=== PATIENT | female | born 1960 | race African-American/Black ===

== ENCOUNTER 2017-09-22 18:44 | Emergency (ER) | payer BC, OTHER | END 2017-09-22 20:39 | disposition home or self-care (01) | LOC: JERFT 18:44 | PROC: 3E0233Z Introduction of Anti-inflammatory into Muscle, Percutaneous Approach (ICD-10-PCS; principal; 2017-09-22) | CPT/HCPCS: 99281-25 ==

== ENCOUNTER 2018-08-07 10:37 | Emergency (ER) | payer OTHER ==
[2018-08-07 11:00] VITALS: BP 99/61; PULSE 78; TEMP 98.2; BMI 23.0
[2018-08-07] MEDS ORDERED: KETOROLAC TROMETHAMINE 60 MG/2 ML VIAL IM ONE (12:32)
[2018-08-07] MEDS ORDERED: METHOCARBAMOL 500 MG TABLET PO ONE (12:32)
--- NOTE | 2018-08-07 12:32 | PDOC ---
History of Present Illness - General Chief Complaint: Pain, Acute Stated Complaint: RT LEG PAIN Time Seen by Provider: 08/07/18 11:46 History Source: Patient Exam Limitations: No Limitations - History of Present Illness Initial Comments: 08/07/18 12:26 HISTORY OF PRESENT ILLNESS: This a 58-year-old woman denies medical history presents emergency Department for evaluation of right thigh pain starting in the evening while at rest. Patient reports increased pain with ambulation, extension of the knee and trying to raise leg while supine. Patient reports the pain started the right anterior thigh just below the hip. Patient reports the pain is 10/10 and describes as a pulling sensation. Patient denies any saddle anesthesia or loss of sensation distal to pain. Patient reports she has taken Tylenol which has had minimal relief with the pain. No recent travel or sick contacts. PAST MEDICAL HISTORY: Denies past medical history SURGICAL HISTORY: Denies ALLERGIES: No known drug allergies REVIEW OF SYSTEMS General/Constitutional: Denies fever or chills. Denies weakness, weight change. HEENT: Denies change in vision. Denies ear pain or discharge. Denies sore throat. Cardiovascular: Denies chest pain or shortness of breath. Respiratory: Denies cough, wheezing, or hemoptysis. Gastrointestinal: Denies nausea, vomiting, diarrhea or constipation. Denies rectal bleeding. Genitourinary: Denies dysuria, frequency, or change in urination. Musculoskeletal: see hpi Skin and breasts: Denies rash or easy bruising. Neurologic: Denies headache, vertigo, loss of consciousness, or loss of sensation. Psychiatric: Denies depression or anxiety. Endocrine: Denies increased thirst. Denies abnormal weight change. Hematologic/Lymphatic: Denies anemia, easy bleeding, or history of blood clots. Allergic/Immunologic: Denies hives or skin allergy. Denies latex allergy. PHYSICAL EXAM General Appearance: Well-appearing, appropriately dressed. No apparent distress , no intoxication. HEENT: EOMI, PERRLA, normal ENT inspection, normal voice, TMs normal, pharynx normal. No conjunctival pallor. No photophobia, scleral icterus. Neck: Supple. Trachea midline. No tenderness, rigidity, carotid bruit, stridor , lymphadenopathy, or thyromegaly. Respiratory/Chest: Lungs CTAB. No shortness of breath, chest tenderness, respiratory distress, accessory muscle use. No crackles, rales, rhonchi, stridor , wheezing, dullness Cardiovascular: RRR. S1, S2. No JVD, murmur, bradycardia, tachycardia. Vascular Pulses: Dorsalis-Pedis (R): 2+, Dorsalis-Pedis (L): 2+ Gastrointestinal/Abdominal: Normal bowel sounds. Abdomen soft, non-distended. No tenderness or rebound tenderness. No organomegaly, pulsatile mass, guarding, hernia, hepatomegaly, splenomegaly. Lymphatic: No adenopathy, tenderness. Musculoskeletal/Extremities: Normal inspection. FROM of all extremities, normal capillary refill. Pelvis Stable. No CVA tenderness. No tenderness to extremities, pedal edema, swelling, erythema or deformity. Palpable muscle spasm over the rectus femoris muscle of the right leg approximately 6 cm distal to the insertion point at the hip. Integumentary: Appropriate color, dry, warm. No cyanosis, erythema, jaundice or rash Neurologic: engineering team supervisor II-XII intact. Fully oriented, alert. Appropriate mood/affect. Motor strength 5/5. No appreciable EOM palsy, facial droop or sensory deficit. Past History - Past Medical History Allergies/Adverse Reactions: Allergies Allergy/AdvReac Type Severity Reaction Status Date / Time No Known Allergies Allergy Verified 08/07/18 11:00 Home Medications: Ambulatory Orders Latanoprost 0.005% Eye Drops [Xalatan 0.005% Eye Drops -] 1 drop OU DAILY Diazepam [Valium] 5 mg PO Q6H #4 tablet MDD 4 08/07/18 Methocarbamol [Robaxin -] 1,000 mg PO TID #22 tablet 08/07/18 Cardiac Disorders: Yes (heart murmur) CVA: No COPD: No DVT: No Diabetes: Yes (borderline diabetes) GI Disorders: Yes (GERD) - Surgical History Orthopedic Surgery: Yes (right ankle) - Immunization History Immunization Up to Date: Yes - Suicide/Smoking/Psychosocial Hx Smoking Status: No Smoking History: Never smoked Have you smoked in the past 12 months: No Number of Cigarettes Smoked Daily: 0 If you are a former smoker, when did you quit?: 2005 Information on smoking cessation initiated: No Hx Alcohol Use: No Drug/Substance Use Hx: No Substance Use Type: None *Physical Exam - Vital Signs Last Vital Signs Temp Pulse Resp BP Pulse Ox 98.2 F 78 17 99/61 99 08/07/18 10:55 08/07/18 10:55 08/07/18 10:55 08/07/18 10:55 08/07/18 10:55 Moderate Sedation - Procedure Monitoring Vital Signs: Procedure Monitoring Vital Signs Temperature 98.2 F 08/07/18 10:55 Pulse Rate 78 08/07/18 10:55 Respiratory Rate 17 08/07/18 10:55 Blood Pressure 99/61 08/07/18 10:55 O2 Sat by Pulse Oximetry (%) 99 08/07/18 10:55 Medical Decision Making - Medical Decision Making 08/07/18 12:31 A/P: 58-year-old woman with muscle spasm of the right rectus femoris muscle Toradol 60 mg IM now Robaxin 1500 mg orally now Will hold off on Valium this patient is driving home today. Reassess 08/07/18 13:16 Patient with mild relief after receiving Toradol and Robaxin. I'll discharge the patient home with prescription for Valium to take when she arrives. Patient was instructed on nonpharmacological methods of relieving muscle spasms. Patient is verbalizes understanding of discharge instructions. *DC/Admit/Observation/Transfer Diagnosis at time of Disposition: Muscle spasm of right leg - Discharge Dispostion Disposition: HOME Condition at time of disposition: Stable Decision to Admit order: No - Prescriptions Prescriptions: Diazepam [Valium] 5 mg PO Q6H #4 tablet MDD 4 Methocarbamol [Robaxin -] 1,000 mg PO TID #22 tablet - Referrals - Patient Instructions Additional Instructions: Rest, no heavy lifting or exercise until pain is resolved Hot soaks to affected area as often as possible/hot showers or Jacuzzis No massage or therapy until spasm is gone Continue ibuprofen 2-200 mg tablets every 6 hours for the next 3 days then as needed for pain and swelling Robaxin 1500mg every 8 hours as needed for spasm If not significant improvement within 24 hours with medication and rest regime, followup with private physician for change in medications and /or therapy. - Post Discharge Activity Forms/Work/School Notes: Back to Work
[2018-08-07] MEDS ORDERED: METHOCARBAMOL 500 MG TABLET ONE (12:33)
[2018-08-07] MEDS ORDERED: KETOROLAC TROMETHAMINE 60 MG/2 ML VIAL ONE (12:33)
== END 2018-08-07 13:27 | disposition home or self-care (01) ==
LOC: JERFT 10:37
PROC: 3E0233Z Introduction of Anti-inflammatory into Muscle, Percutaneous Approach (ICD-10-PCS; principal; 2018-08-07)
DX: M62.838 Other muscle spasm (principal)
CPT/HCPCS: 99281-25

== ENCOUNTER 2018-08-15 21:48 | Observation (INO) | payer OTHER ==
--- NOTE | 2018-08-15 22:45 | PDOC ---
History of Present Illness - General Chief Complaint: Nausea/Vomiting Stated Complaint: VOMITING History Source: Patient Exam Limitations: No Limitations - History of Present Illness Initial Comments: 08/15/18 22:44 58 yo F with a hx of GERD presents to the emergency department with N/V with sudden onset of abdominal pain today at 7:30 pm with 3x episodes of emesis (NBNB ). Per the patient, she started having sudden chills with fever and acute onset of RLQ abdominal pain that radiates to the LLQ and bilateral lower back. Per the patient, she states the pain is 8/10 (initially 10/10), sharp, without dysuria and diarrhea. She denies hematuria and hematochezia. Prior to the onset of the abdominal pain, she became SOB and currently has SOB. Denies fevers, chills, visual changes, lightheadedness, chest pain. Past History - Past Medical History Allergies/Adverse Reactions: Allergies Allergy/AdvReac Type Severity Reaction Status Date / Time No Known Allergies Allergy Verified 08/22/18 09:57 Home Medications: Ambulatory Orders Amoxicillin/Potassium Clav [Augmentin 500-125 Tablet] 1 each PO Q12H #9 tablet 08/22/18 Phenazopyridine HCl [Pyridium -] 100 mg PO BID #6 tablet 08/22/18 Cardiac Disorders: Yes (heart murmur) CVA: No COPD: No DVT: No Diabetes: Yes (borderline diabetes) GI Disorders: Yes (GERD) - Surgical History Orthopedic Surgery: Yes (right ankle) - Immunization History Immunization Up to Date: Yes - Suicide/Smoking/Psychosocial Hx Smoking Status: No Smoking History: Never smoked Have you smoked in the past 12 months: No Number of Cigarettes Smoked Daily: 0 If you are a former smoker, when did you quit?: 2005 Hx Alcohol Use: No Drug/Substance Use Hx: No Substance Use Type: None Review of Systems - Review of Systems Able to Perform ROS?: Yes Is the patient limited Khmer proficient: No Constitutional: No: Chills, Diaphoresis, Fever, Night Sweats, Weakness HEENTM: No: Eye Pain, Recent change in vision, Ear Pain, Nose Pain, Throat Pain , Mouth Pain Respiratory: Yes: Shortness of Breath. No: Cough, Hemoptysis Cardiac (ROS): No: Chest Pain, Lightheadedness, Palpitations ABD/GI: Yes: Nausea, Vomiting. No: Constipated, Diarrhea, Rectal Bleeding, Tarry Stools : No: Burning, Dysuria, Hematuria, Urgency Musculoskeletal: Yes: Back Pain. No: Joint Pain, Neck Pain Integumentary: No: Bruising, Erythema, Rash Neurological: No: Headache, Numbness, Tingling, Dizziness Psychiatric: No: Change in Appetite Endocrine: No: Unexplained Weight Gain *Physical Exam - Vital Signs Last Vital Signs Temp Pulse Resp BP Pulse Ox 99.1 F 120 H 20 92/54 L 97 08/15/18 22:01 08/15/18 22:01 08/15/18 22:01 08/15/18 22:01 08/15/18 22:01 - Physical Exam General Appearance: Yes: Nourished, Appropriately Dressed. No: Apparent Distress, Intoxicated HEENT: positive: EOMI, FOSTER, Normal Voice, Symmetrical, Pharynx Normal, Hearing Grossly Normal. negative: Pale Conjunctivae, Scleral Icterus (R), Scleral Icterus (L), Muffled/Hoarse voice, Pharyngeal Erythema, Tonsillar Exudate, Tonsillar Erythema, Nasal Congestion, Rhinorrhea, Excessive drooling Neck: positive: Trachea midline, Supple. negative: Tender, Lymphadenopathy (R) , Lymphadenopathy (L), Tender lateral, Tender midline Respiratory/Chest: positive: Lungs Clear, Normal Breath Sounds. negative: Chest Tender, Respiratory Distress, Accessory Muscle Use, Crackles, Rales, Rhonchi, Stridor Cardiovascular: positive: Regular Rhythm, S1, S2, Tachycardia. negative: Systolic Murmur Gastrointestinal/Abdominal: positive: Normal Bowel Sounds, Tender (RLQ), Flat, Soft. negative: Distended, Guarding, Rebound Lymphatic: negative: Adenopathy Musculoskeletal: positive: Normal Inspection. negative: CVA Tenderness, Vertebral Tenderness Extremity: positive: Normal Capillary Refill, Normal Inspection, Normal Range of Motion. negative: Tender, Swelling, Calf Tenderness Integumentary: positive: Normal Color, Dry, Warm. negative: Diaphoresis, Swelling, Ecchymosis Neurologic: positive: it business analyst II-XII NML intact, Fully Oriented, Alert, Normal Mood/ Affect, Normal Response, Motor Strength 5/5. negative: EOM Palsy, Facial Droop , Sensory Deficit Moderate Sedation - Procedure Monitoring Vital Signs: Procedure Monitoring Vital Signs Temperature 99.1 F 08/15/18 22:01 Pulse Rate 120 H 08/15/18 22:01 Respiratory Rate 20 08/15/18 22:01 Blood Pressure 92/54 L 08/15/18 22:01 O2 Sat by Pulse Oximetry (%) 97 08/15/18 22:01 Heart Score/ECG Review - ECG Intrepretation Comment:: ventricular rate: 120 bpm, WV is 192 ms, QRS is 68 ms, QTc is 407 ms. Sinus tach without ST elevation or depressions. ED Treatment Course - LABORATORY CBC & Chemistry Diagram: 08/17/18 06:00 08/17/18 06:00 Medical Decision Making - Medical Decision Making 58 yo F with a hx of GERD presents to the emergency department with N/V with sudden onset of abdominal pain today at 7:30 pm with 3x episodes of emesis (NBNB ). Initial vitals: Initial Vital Signs Temp Pulse Resp BP Pulse Ox 99.1 F 120 H 20 92/54 L 97 08/15/18 22:01 08/15/18 22:01 08/15/18 22:01 08/15/18 22:01 08/15/18 22:01 Work up: ddx: UTI vs appendicitis vs SBO vs volvulus vs colitits vs nephrolithiasis Laboratory Tests 08/15/18 08/16/18 08/16/18 23:45 00:05 00:05 WBC 14.3 H RBC 4.11 Hgb 13.0 Hct 36.3 MCV 88.4 MCH 31.6 MCHC 35.7 RDW 13.5 Plt Count 290 MPV 7.5 Absolute Neuts (auto) 12.4 H Neutrophils % 86.6 H D Lymphocytes % 6.9 L D Monocytes % 6.1 Eosinophils % 0.1 D Basophils % 0.3 Nucleated RBC % 0 Sodium 136 Potassium 3.7 Chloride 102 Carbon Dioxide 29 Anion Gap 5 L BUN 18 Creatinine 0.8 Creat Clearance w eGFR 74.20 Random Glucose 106 Lactic Acid Calcium 9.3 Total Bilirubin 0.6 AST 22 ALT 28 Alkaline Phosphatase 120 H Creatine Kinase 139 Troponin I < 0.02 Total Protein 8.3 H Albumin 3.8 Urine Color Yellow Urine Appearance Clear Urine pH 7.5 D Ur Specific [place] 1.017 Urine Protein Negative Urine Glucose (UA) Negative Urine Ketones 1+ H Urine Blood Negative Urine Nitrite Negative Urine Bilirubin Negative Urine Urobilinogen 0.2 Ur Leukocyte Esterase 1+ Urine WBC (Auto) 14 Urine RBC (Auto) 2 Urine Casts (Auto) 2 U Epithel Cells (Auto) 1.9 Urine Bacteria (Auto) 10.836 Influenza A (Rapid) Influenza B (Rapid) 08/16/18 08/16/18 00:05 00:05 WBC RBC Hgb Hct MCV MCH MCHC RDW Plt Count MPV Absolute Neuts (auto) Neutrophils % Lymphocytes % Monocytes % Eosinophils % Basophils % Nucleated RBC % Sodium Potassium Chloride Carbon Dioxide Anion Gap BUN Creatinine Creat Clearance w eGFR Random Glucose Lactic Acid 1.2 Calcium Total Bilirubin AST ALT Alkaline Phosphatase Creatine Kinase Troponin I Total Protein Albumin Urine Color Urine Appearance Urine pH Ur Specific [place] Urine Protein Urine Glucose (UA) Urine Ketones Urine Blood Urine Nitrite Urine Bilirubin Urine Urobilinogen Ur Leukocyte Esterase Urine WBC (Auto) Urine RBC (Auto) Urine Casts (Auto) U Epithel Cells (Auto) Urine Bacteria (Auto) Influenza A (Rapid) Negative Influenza B (Rapid) Negative WBC 14.3, 1+ leuk est with 14 WBC CXR shows no acute intrathoracic pathologies CT abdomen and pelvis shows uterine fibroids, but no acute findings Interventions: zosyn, 2 L of NS, and IV tylenol. the patient had persistence of tachycardia. Patient was accepted for admission for suspected sepsis secondary to UTI. Dispo: Admit *DC/Admit/Observation/Transfer Diagnosis at time of Disposition: UTI (urinary tract infection) Qualifiers: Urinary tract infection type: acute cystitis Hematuria presence: without hematuria Qualified Code(s): N30.00 - Acute cystitis without hematuria - Referrals - Patient Instructions - Post Discharge Activity
[2018-08-15] MEDS ORDERED: SODIUM CHLORIDE 1,973 ML IV ONE (23:22)
[2018-08-15] MEDS ORDERED: ACETAMINOPHEN 1000 MG/100 ML VIAL (NON FORMULARY) IVPB ONE (23:22)
[2018-08-15] MEDS ORDERED: ACETAMINOPHEN INJECTION 100 ML IVPB ONE (23:31)
[2018-08-15 23:55] LABS: EPI CELLS 1.9 /HPF (0-5); HYALINE CASTS 2 /hpf (0-8); PH,URINE 7.5 (5.0-8.0); URINE APPEARANCE CLEAR; URINE BACTERIA 10.836 /hpf (NEGATIVE); URINE BILIRUBIN NEGATIVE (<2.0 mg/dL); URINE COLOR YELLOW; URINE GLUCOSE (UA) NEGATIVE (NEGATIVE); URINE KETONE 1+ (NEGATIVE); URINE LEUK ESTERASE 1+ (NEGATIVE); URINE NITRITE NEGATIVE (NEGATIVE); URINE PROTEIN NEGATIVE (NEGATIVE); URINE RBC 2 /hpf (0-4); URINE UROBILINOGEN 0.2 mg/dL (0.2-1.0); URINE WBC 14 /hpf (0-5)
[2018-08-16 00:16] LABS: BASO % 0.3 % (0-2.0); EOS % 0.1 % (0-4.5); HEMATOCRIT 36.3 % (32.4-45.2); LYMPH % 6.9 % (8-40); MCH 31.6 pg (25.7-33.7); MCHC 35.7 g/dl (32.0-36.0); MEAN CELL VOLUME 88.4 fl (80-96); MEAN PLT VOLUME 7.5 fl (7.5-11.1); MONO % 6.1 % (3.8-10.2); NEUT % 86.6 % (42.8-82.8); PLATELET COUNT 290 K/MM3 (134-434); RBC 4.11 M/mm3 (3.60-5.2); RDW 13.5 % (11.6-15.6); WHITE BLOOD COUNT 14.3 K/mm3 (4.0-10.0)
[2018-08-16 00:45] LABS: ALBUMIN 3.8 g/dl (3.4-5.0); ALK PHOS 120 U/L (45-117); ANION GAP 5 MMOL/L (8-16); BILIRUBIN,TOTAL 0.6 mg/dL (0.2-1); BLOOD UREA NITROGEN 18 mg/dL (7-18); CALCIUM 9.3 mg/dL (8.5-10.1); CHLORIDE 102 mmol/L (98-107); CO2 29 mmol/L (21-32); CREATININE 0.8 mg/dL (0.55-1.3); GLUCOSE,RANDOM 106 mg/dL (74-106); POTASSIUM 3.7 mmol/L (3.5-5.1); SGOT/AST 22 U/L (15-37); SGPT/ALT 28 U/L (13-61); SODIUM 136 mmol/L (136-145); TOT PROT 8.3 g/dl (6.4-8.2)
[2018-08-16] MEDS ORDERED: SODIUM CHLORIDE 1,000 ML IV STA ×2 (03:18→09:16)
--- NOTE | 2018-08-16 03:25 | PDOC ---
Attending Attestation - Resident Resident Name: Henrik Stoner - ED Attending Attestation I have performed the following: I have examined & evaluated the patient, The case was reviewed & discussed with the resident, I agree w/resident's findings & plan, Exceptions are as noted - HPI HPI: 08/16/18 03:21 The patient is a 58 year old female, with a significant PMH of GERD, who presents to the emergency department with right lower quadrant abdominal pain and 3 episodes of nausea and vomiting (non bloody, non bilious) beginning at 7: 30 pm this evening. The patient states she experienced a sudden onset of fever and chills prior to the abdominal pain. The patient states the right lower quadrant pain is sharp, rated 8/10, radiating to the left lower quadrant and bilateral lower back. The patient also endorses shortness of breath prior to the abdominal pain that has since resolved. The patient denies chest pain, headache and dizziness. Denies diarrhea and constipation. Denies dysuria, frequency, urgency and hematuria. Allergies: NKA - Physicial Exam PE: 08/16/18 03:22 agree with resident exam - Medical Decision Making 08/16/18 02:52 58yo F presents to the ED with lower abd pain +low back pain W/u remarakable for leukocytosis, +UTI CTAP with no acute findings Pt persistently tachycardic and febrile despite 2L fluids and tylenol CXR clear Pt covered with Zosyn [employer] system down, unable to get in touch with hospitalist Calling office now to admit pt 08/16/18 03:56 Pt signed out at this time to Dr. Ross, accepted for admission
[2018-08-16] MEDS ORDERED: PIPERACILLIN/TAZOB 3.375 GM 3.375 GM in DEXTROSE 5%-WATER - 50 ML IVPB ONE (03:50)
[2018-08-16] MEDS ORDERED: PIPERACILLIN/TAZOB 3.375 GM 3.375 GM/50 ML BAG IVPB ONE (05:23)
[2018-08-16] MEDS ORDERED: ONDANSETRON 4 MG/2 ML VIAL IVPUSH ONE (05:46)
[2018-08-16] MEDS ORDERED: ONDANSETRON 4 MG/2 ML VIAL ONE (05:49)
[2018-08-16] MEDS ORDERED: ONDANSETRON 4 MG/2 ML VIAL IVPUSH PRN (05:53)
[2018-08-16] MEDS ORDERED: ACETAMINOPHEN 1000 MG/100 ML VIAL (NON FORMULARY) IVPB PRN (05:57)
--- NOTE | 2018-08-16 06:13 | PN ---
Teaching Attending Note Name of Resident: Xavier Boogie ATTENDING PHYSICIAN STATEMENT I saw and evaluated the patient. I reviewed the resident's note and discussed the case with the resident. I agree with the resident's findings and plan as documented. SUBJECTIVE: OBJECTIVE: aaox3 s1 and s2 rrr abdomen soft, tender in the lower quadrant,. ASSESSMENT AND PLAN: admit patient as observation to med-surg d/c piperzillin/tazobatam start the patient on ceftriaxone c/w GERD medication acetaminophen prn fever ID consult GI consult if suspicion for perforation
[2018-08-16] MEDS: SODIUM CHLORIDE 1,000 ML IV SCH ×2 (06:21→15:40)
--- NOTE | 2018-08-16 06:23 | HP ---
CHIEF COMPLAINT: PCP: GI Dr Schuler at [facility] OBGYN Dr Frey at [facility] HISTORY OF PRESENT ILLNESS: 58 yo menopausal F with a hx of GERD p/w sudden onset of sharp, 8/10 RLQ abdominal pain radiating to the LLQ and b/l lower back with fevers, chills, and 3x episodes of nausea and emesis (NBNB) x1d. Per the patient, she came home from work and started having sudden chills with fever and acute onset of RLQ abdominal pain that radiated to the LLQ and bilateral lower back. pt was in good health before. Per the patient, she states the pain is 8/10 (initially 10/ 10), sharp, without dysuria and diarrhea. She denies hematuria and hematochezia. Prior to the onset of the abdominal pain, she became SOB but currently is resolved. denies chest pain, headache and dizziness. Denies diarrhea and constipation. Denies dysuria, frequency, urgency and hematuria, blood in vomit or in stool Denies any new sexual partners. of note Per pt, pt had colonoscopy in 07/25/18 w/ Dr Schuler at [facility] which was normal. her first colonoscopy in 2012 showed polyps which were removed of note Per pt, 07/2017 bx of uterus w/ Dr Frey at [facility], was nl pt recently seen in our ED for thigh pain due to muscle spasm, was tx w/ valium and robaxin ER course was notable for: (1) 2L NS, tylenol, zofran, Zosyn (2) UA+ (3)CXR nl, CT A/P no acute findings Recent Travel: denies PAST MEDICAL HISTORY: Per pt: -LMP 05/2017 -colonoscopy in 07/25/18 w/ Dr Schuler at [facility] which was normal. 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 [place] Family History: Allergies No Known Allergies Allergy (Verified 08/16/18 05:38) HOME MEDICATIONS: Home Medications Medication Instructions Recorded Latanoprost 0.005% Eye Drops 1 drop OU DAILY 08/15/12 [Xalatan 0.005% Eye Drops -] Diazepam [Valium] 5 mg PO Q6H #4 tablet MDD 4 08/07/18 Methocarbamol [Robaxin -] 1,000 mg PO TID #22 tablet 08/07/18 REVIEW OF SYSTEMS as per [facility] PHYSICAL EXAMINATION Vital Signs - 24 hr 08/15/18 08/16/18 08/16/18 22:01 00:58 03:03 Temperature 99.1 F 101.5 F H Pulse Rate 120 H 116 H Pulse Rate [ Left Apical] Respiratory 20 20 20 Rate Blood Pressure 92/54 L 129/72 Blood Pressure [Left Arm] O2 Sat by Pulse 97 99 99 Oximetry (%) 08/16/18 03:13 Temperature 99.7 F H Pulse Rate Pulse Rate [ 110 H Left Apical] Respiratory 17 Rate Blood Pressure Blood Pressure 124/60 [Left Arm] O2 Sat by Pulse 99 Oximetry (%) GENERAL: Awake, alert, and fully oriented, in no acute distress. HEAD: Normal with no signs of trauma. EYES: Pupils equal, round and reactive to light, extraocular movements intact, sclera anicteric, conjunctiva clear. No lid lag. EARS, NOSE, THROAT: nares patent, oropharynx clear without exudates. Moist mucous membranes. NECK: Normal range of motion, supple without lymphadenopathy, JVD, or masses. LUNGS: CTAB HEART: Regular rate and rhythm, normal S1 and S2 without murmur, rub or gallop. ABDOMEN: Soft, TTP in RLQ and LLQ R>L. not distended, normoactive bowel sounds, no guarding, no rebound, no masses. No hepatomegaly or splenomegaly. MUSCULOSKELETAL: Normal range of motion at all joints. No bony deformities or tenderness. No CVA tenderness. UPPER EXTREMITIES: 2+ pulses, warm, well-perfused. No cyanosis. No clubbing. No peripheral edema. LOWER EXTREMITIES: 2+ pulses, warm, well-perfused. mild thigh tenderness. No peripheral edema. NEUROLOGICAL: Cranial nerves II-XII intact. Normal speech. PSYCHIATRIC: Cooperative. Good eye contact. Appropriate mood and affect. SKIN: Warm, dry, normal turgor, no rashes or lesions noted, normal capillary refill. Laboratory Results - last 24 hr 08/15/18 08/16/18 08/16/18 23:45 00:05 00:05 WBC 14.3 H RBC 4.11 Hgb 13.0 Hct 36.3 MCV 88.4 MCH 31.6 MCHC 35.7 RDW 13.5 Plt Count 290 MPV 7.5 Absolute Neuts (auto) 12.4 H Neutrophils % 86.6 H D Lymphocytes % 6.9 L D Monocytes % 6.1 Eosinophils % 0.1 D Basophils % 0.3 Nucleated RBC % 0 Sodium 136 Potassium 3.7 Chloride 102 Carbon Dioxide 29 Anion Gap 5 L BUN 18 Creatinine 0.8 Creat Clearance w eGFR 74.20 Random Glucose 106 Lactic Acid Calcium 9.3 Total Bilirubin 0.6 AST 22 ALT 28 Alkaline Phosphatase 120 H Creatine Kinase 139 Troponin I < 0.02 Total Protein 8.3 H Albumin 3.8 Urine Color Yellow Urine Appearance Clear Urine pH 7.5 D Ur Specific [place] 1.017 Urine Protein Negative Urine Glucose (UA) Negative Urine Ketones 1+ H Urine Blood Negative Urine Nitrite Negative Urine Bilirubin Negative Urine Urobilinogen 0.2 Ur Leukocyte Esterase 1+ Urine WBC (Auto) 14 Urine RBC (Auto) 2 Urine Casts (Auto) 2 U Epithel Cells (Auto) 1.9 Urine Bacteria (Auto) 10.836 Influenza A (Rapid) Influenza B (Rapid) 08/16/18 08/16/18 00:05 00:05 WBC RBC Hgb Hct MCV MCH MCHC RDW Plt Count MPV Absolute Neuts (auto) Neutrophils % Lymphocytes % Monocytes % Eosinophils % Basophils % Nucleated RBC % Sodium Potassium Chloride Carbon Dioxide Anion Gap BUN Creatinine Creat Clearance w eGFR Random Glucose Lactic Acid 1.2 Calcium Total Bilirubin AST ALT Alkaline Phosphatase Creatine Kinase Troponin I Total Protein Albumin Urine Color Urine Appearance Urine pH Ur Specific [place] Urine Protein Urine Glucose (UA) Urine Ketones Urine Blood Urine Nitrite Urine Bilirubin Urine Urobilinogen Ur Leukocyte Esterase Urine WBC (Auto) Urine RBC (Auto) Urine Casts (Auto) U Epithel Cells (Auto) Urine Bacteria (Auto) Influenza A (Rapid) Negative Influenza B (Rapid) Negative ASSESSMENT/PLAN: 58 yo menopausal F with a hx of GERD p/w sudden onset of sharp, 8/10 RLQ abdominal pain radiating to the LLQ and b/l lower back with fevers, chills, and 3x episodes of nausea and emesis (NBNB) x1d. found w/ +UA for UTI sepsis 2/2 UTI vs complication of recent colonoscopy? - febrile 101.5, tachycardia, leukocytosis 14.3, +UA, lower abd tenderness. AOX3, NAD. Per pt, pt had colonoscopy in 07/25/18 w/ Dr Schuler at [facility] which was normal -s/p 2L NS, tylenol, zofran, Zosyn, in ED CXR nl, no signs of PNA flu neg CT A/P no acute findings on prelim read, chronic findings per CT 2012. will f/u official report will start CTX 1g qd for 5 days f/u bcx, ucx zofran for nausea tylenol for pain consider ID consult consider GI consult if suspicion for perforation Muscle spasm - pt recently seen in our ED 08/07/18 for thigh pain due to muscle spasm, was tx w/ valium and robaxin will hold meds for now Glaucoma? - pt says she takes xalatan for eye floaters GERD protonix FEN NS 100cc/hr replete prn Regular ppx Lovenox 40 sq Dispo obs Visit type - Emergency Visit Emergency Visit: Yes ED Registration Date: 08/16/18 Care time: The patient presented to the Emergency Department on the above date and was hospitalized for further evaluation of their emergent condition. - New Patient This patient is new to me today: Yes Date on this admission: 08/16/18 - Critical Care Critical Care patient: No
[2018-08-16 10:21] LABS: BASO % 0.3 % (0-2.0); EOS % 0.1 % (0-4.5); HEMATOCRIT 34.3 % (32.4-45.2); HEMOGLOBIN 12.1 GM/dL (10.7-15.3); LYMPH % 7.4 % (8-40); MCH 31.5 pg (25.7-33.7); MCHC 35.4 g/dl (32.0-36.0); MEAN CELL VOLUME 88.9 fl (80-96); MEAN PLT VOLUME 7.6 fl (7.5-11.1); MONO % 4.3 % (3.8-10.2); NEUT % 87.9 % (42.8-82.8); PLATELET COUNT 258 K/MM3 (134-434); RBC 3.86 M/mm3 (3.60-5.2); RDW 13.3 % (11.6-15.6); WHITE BLOOD COUNT 14.4 K/mm3 (4.0-10.0)
[2018-08-16 10:44] LABS: ALBUMIN 3.1 g/dl (3.4-5.0); ALK PHOS 98 U/L (45-117); ANION GAP 5 MMOL/L (8-16); BILIRUBIN,TOTAL 0.6 mg/dL (0.2-1); BLOOD UREA NITROGEN 12 mg/dL (7-18); CALCIUM 8.6 mg/dL (8.5-10.1); CHLORIDE 107 mmol/L (98-107); CO2 26 mmol/L (21-32); CREATININE 0.7 mg/dL (0.55-1.3); GLUCOSE,RANDOM 96 mg/dL (74-106); MAGNESIUM 2.3 mg/dL (1.8-2.4); PHOSPHOROUS 3.6 mg/dL (2.5-4.9); POTASSIUM 3.9 mmol/L (3.5-5.1); SGOT/AST 17 U/L (15-37); SGPT/ALT 24 U/L (13-61); SODIUM 138 mmol/L (136-145); TOT PROT 7.1 g/dl (6.4-8.2)
[2018-08-16] MEDS ORDERED: ENOXAPARIN NA (PORCINE) 40 MG/0.4 ML DISP.SYRIN SQ ONE ×2 (10:48→10:49)
[2018-08-16] MEDS ORDERED: PANTOPRAZOLE 40 MG TABLET (FP) ONE (10:48)
[2018-08-16] MEDS ORDERED: CEFTRIAXONE 1 GM/50 ML BAG ONE ×2 (10:49→10:50)
[2018-08-16] MEDS: ENOXAPARIN NA (PORCINE) 40 MG/0.4 ML DISP.SYRIN SQ SCH (11:02)
[2018-08-16] MEDS: CEFTRIAXONE 1 GM in DEXTROSE 5%-WATER - 50 ML IVPB SCH (11:02)
[2018-08-16] MEDS: PANTOPRAZOLE 40 MG TABLET (FP) PO SCH (11:02)
--- NOTE | 2018-08-16 13:19 | HOSP ---
Subjective - Review of Symptoms Subjective: pt states she overall feels somewhat better however has not been able to keep any food down. denies CP, SOB, N/V/C?D Current Medications Generic Name Dose Route Start Last Admin Trade Name Freq PRN Reason Stop Dose Admin Acetaminophen 1,000 mg 08/16/18 05:57 Ofirmev Injection - IVPB Q6H PRN PAIN OR FEVER Enoxaparin Sodium 40 mg 08/16/18 10:00 08/16/18 11:02 Lovenox - SQ Not Given DAILY YASMIN Sodium Chloride 1,000 mls @ 100 mls/hr 08/16/18 06:00 08/16/18 06:21 Normal Saline - IV 100 mls/hr ASDIR YASMIN Administration Ceftriaxone Sodium 1 gm/ 50 mls @ 100 mls/hr 08/16/18 10:00 08/16/18 11:02 Dextrose IVPB 08/21/18 09:59 100 mls/hr DAILY YASMIN Administration Protocol Latanoprost 1 drop 08/16/18 22:00 Xalatan 0.005% Eye Drops - OU HS YASMIN Ondansetron HCl 4 mg 08/16/18 05:53 Zofran Injection IVPUSH Q6H PRN NAUSEA Pantoprazole Sodium 40 mg 08/16/18 10:00 08/16/18 11:02 Protonix - PO 40 mg DAILY YASMIN Administration Last Vital Signs Temp Pulse Resp BP Pulse Ox 101.5 F H 105 H 18 111/67 96 08/16/18 12:29 08/16/18 12:29 08/16/18 12:29 08/16/18 12:29 08/16/18 12:29 General lethargic CV S1 S2 tachy Lungs CTA B/L no wheezing/rales/rhonchi Abdomen soft +Suprapubic tenderness neg cva tenderness Extremiteis no pedal edema CBCD WBC 14.4 K/mm3 (4.0-10.0) H 08/16/18 10:04 RBC 3.86 M/mm3 (3.60-5.2) 08/16/18 10:04 Hgb 12.1 GM/dL (10.7-15.3) 08/16/18 10:04 Hct 34.3 % (32.4-45.2) 08/16/18 10:04 MCV 88.9 fl (80-96) 08/16/18 10:04 MCHC 35.4 g/dl (32.0-36.0) 08/16/18 10:04 RDW 13.3 % (11.6-15.6) 08/16/18 10:04 Plt Count 258 K/MM3 (134-434) 08/16/18 10:04 MPV 7.6 fl (7.5-11.1) 08/16/18 10:04 CMP Sodium 138 mmol/L (136-145) 08/16/18 10:04 Potassium 3.9 mmol/L (3.5-5.1) 08/16/18 10:04 Chloride 107 mmol/L (98-107) 08/16/18 10:04 Carbon Dioxide 26 mmol/L (21-32) 08/16/18 10:04 Anion Gap 5 MMOL/L (8-16) L 08/16/18 10:04 BUN 12 mg/dL (7-18) 08/16/18 10:04 Creatinine 0.7 mg/dL (0.55-1.3) 08/16/18 10:04 Creat Clearance w eGFR 86.56 (>60) 08/16/18 10:04 Calcium 8.6 mg/dL (8.5-10.1) 08/16/18 10:04 Total Bilirubin 0.6 mg/dL (0.2-1) 08/16/18 10:04 AST 17 U/L (15-37) 08/16/18 10:04 ALT 24 U/L (13-61) 08/16/18 10:04 Alkaline Phosphatase 98 U/L (45-117) 08/16/18 10:04 Total Protein 7.1 g/dl (6.4-8.2) 08/16/18 10:04 Albumin 3.1 g/dl (3.4-5.0) L 08/16/18 10:04 Plan: 1. sepsis due to UTI- cont IVF, ceftriaxone day 1. advance diet as tolerated. nasuea control. Flu negative. will f/u cx anticipate discharge in next 24-48H once patient is afebrile Physical Examination Vital Signs: Vital Signs Temperature 101.5 F H 08/16/18 12:29 Pulse Rate 105 H 08/16/18 12:29 Respiratory Rate 18 08/16/18 12:29 Blood Pressure 111/67 08/16/18 12:29 O2 Sat by Pulse Oximetry (%) 96 08/16/18 12:29 Labs: CBC, BMP 08/16/18 10:04 08/16/18 10:04
[2018-08-16 16:07] VITALS: BMI 24.3
--- NOTE | 2018-08-16 16:26 | EKG ---
Test Reason : Blood Pressure : / mmHG Vent. Rate : 120 BPM Atrial Rate : 120 BPM P-R Int : 192 ms QRS Dur : 068 ms QT Int : 288 ms P-R-T Axes : 050 009 082 degrees QTc Int : 407 ms SINUS TACHYCARDIA POSSIBLE LEFT ATRIAL ENLARGEMENT NONSPECIFIC T WAVE ABNORMALITY ABNORMAL ECG WHEN COMPARED WITH ECG OF 12-MAR-2016 19:56, VENT. RATE HAS INCREASED BY 59 BPM CRITERIA FOR SEPTAL INFARCT ARE NO LONGER PRESENT NONSPECIFIC T WAVE ABNORMALITY, WORSE IN LATERAL LEADS Confirmed by KISHORE SHELTON MD ([id number]) on 08/16/2018 4:26:32 PM Referred By: Confirmed By:KISHORE SHELTON MD
[2018-08-16] MEDS ORDERED: LATANOPROST 0.005% OPHTH SOLN 2.5ML BOTTLE OU SCH (22:00)
[2018-08-17] MEDS: SODIUM CHLORIDE 1,000 ML IV SCH (07:02)
[2018-08-17 07:27] LABS: BASO % 0.5 % (0-2.0); EOS % 0.2 % (0-4.5); HEMATOCRIT 30.7 % (32.4-45.2); HEMOGLOBIN 10.8 GM/dL (10.7-15.3); LYMPH % 23.2 % (8-40); MCH 31.3 pg (25.7-33.7); MCHC 35.1 g/dl (32.0-36.0); MEAN CELL VOLUME 89.2 fl (80-96); MEAN PLT VOLUME 7.8 fl (7.5-11.1); MONO % 7.7 % (3.8-10.2); NEUT % 68.4 % (42.8-82.8); PLATELET COUNT 230 K/MM3 (134-434); RBC 3.44 M/mm3 (3.60-5.2); RDW 13.5 % (11.6-15.6); WHITE BLOOD COUNT 6.4 K/mm3 (4.0-10.0)
[2018-08-17 07:53] LABS: ALBUMIN 2.7 g/dl (3.4-5.0); ALK PHOS 83 U/L (45-117); ANION GAP 7 MMOL/L (8-16); BILIRUBIN,TOTAL 0.3 mg/dL (0.2-1); BLOOD UREA NITROGEN 9 mg/dL (7-18); CALCIUM 8.1 mg/dL (8.5-10.1); CHLORIDE 108 mmol/L (98-107); CO2 25 mmol/L (21-32); CREATININE 0.7 mg/dL (0.55-1.3); GLUCOSE,RANDOM 83 mg/dL (74-106); MAGNESIUM 2.2 mg/dL (1.8-2.4); PHOSPHOROUS 3.3 mg/dL (2.5-4.9); POTASSIUM 3.8 mmol/L (3.5-5.1); SGOT/AST 18 U/L (15-37); SGPT/ALT 19 U/L (13-61); SODIUM 141 mmol/L (136-145); TOT PROT 6.2 g/dl (6.4-8.2)
[2018-08-17 08:42] VITALS: BP 101/67; PULSE 91
[2018-08-17] MEDS ORDERED: DEXTROSE 5%-WATER - 50 ML IVPB ONE (08:50)
[2018-08-17] MEDS ORDERED: cefTRIAXone SODIUM 1 GM VIAL ONE (08:50)
--- NOTE | 2018-08-17 09:57 | PN ---
Teaching Attending Note Name of Resident: Ventura Mann ATTENDING PHYSICIAN STATEMENT I saw and evaluated the patient. I reviewed the resident's note and discussed the case with the resident. I agree with the resident's findings and plan as documented. SUBJECTIVE:states she feels much improved. tolerating diet. no fever or chills or dysuria OBJECTIVE: Last Vital Signs Temp Pulse Resp BP Pulse Ox 99 F 91 H 18 101/67 100 08/17/18 08:41 08/17/18 08:41 08/17/18 08:41 08/17/18 08:41 08/17/18 04:53 General NAD Abdomen soft NT/ND Microbiology 08/15/18 23:45 Urine Culture - Preliminary Urine - Urine Clean Catch Beta Hemolytic Strep 08/15/18 23:58 Blood Culture - Preliminary Blood - Peripheral Venous NO GROWTH OBTAINED AFTER 24 HOURS, INCUBATION TO CONTINUE FOR 4 DAYS. 08/15/18 23:58 Blood Culture - Preliminary Blood - Peripheral Venous NO GROWTH OBTAINED AFTER 24 HOURS, INCUBATION TO CONTINUE FOR 4 DAYS. ASSESSMENT AND PLAN: 58yo F with PMH GERD presents to the ER with abdominal pain/N/V and found to be septic due to UTI 1. sepsis due to UTI- Tm 101.5 clinically improved no more fevers or signs of sepsis. On ceftriaxone day 2. will d/c home on keflex for additional day to complete 3 day course. will obtain good contact information for patient so she can be called if Ucx reports poor senstivity to abx selection. pt counselled and verbalized understanding of plan.
[2018-08-17] MEDS: CEFTRIAXONE 1 GM in DEXTROSE 5%-WATER - 50 ML IVPB SCH (10:33)
[2018-08-17] MEDS: PANTOPRAZOLE 40 MG TABLET (FP) PO SCH (10:34)
[2018-08-17] MEDS: ENOXAPARIN NA (PORCINE) 40 MG/0.4 ML DISP.SYRIN SQ SCH (10:34)
--- NOTE | 2018-08-17 13:35 | DS ---
Physical Exam: SUBJECTIVE: Patient seen and examined at bedside. Symptoms have resolved. Pt is afebrile. No acute complaints. OBJECTIVE: Vital Signs Period Temp Pulse Resp BP Sys/William Pulse Ox Last 24 Hr 97.9 F-101.1 F 68-101 18-20 101-139/62-72 100-100 PHYSICAL EXAM GENERAL: A&Ox3, NAD HEENT: NC/AT, PERRLA, EOMI, MMM NECK: Trachea midline, full range of motion, supple. LUNGS: CTA b/l HEART: RRR no m/r/g ABDOMEN: +bs, soft, NT, ND EXTREMITIES: 2+ pulses, warm, well-perfused, no edema. NEUROLOGICAL: environmental associate, motor, sensory systems w/o focal deficit PSYCH: Normal mood, normal affect. SKIN: Warm, dry, normal turgor, no rashes or lesions noted LABS Laboratory Results - last 24 hr 08/17/18 08/17/18 06:00 06:00 WBC 6.4 RBC 3.44 L Hgb 10.8 Hct 30.7 L MCV 89.2 MCH 31.3 MCHC 35.1 RDW 13.5 Plt Count 230 MPV 7.8 Absolute Neuts (auto) 4.4 Neutrophils % 68.4 D Lymphocytes % 23.2 D Monocytes % 7.7 Eosinophils % 0.2 D Basophils % 0.5 Nucleated RBC % 0 Sodium 141 Potassium 3.8 Chloride 108 H Carbon Dioxide 25 Anion Gap 7 L BUN 9 Creatinine 0.7 Creat Clearance w eGFR 86.56 Random Glucose 83 Calcium 8.1 L Phosphorus 3.3 Magnesium 2.2 Total Bilirubin 0.3 AST 18 ALT 19 Alkaline Phosphatase 83 Total Protein 6.2 L Albumin 2.7 L HOSPITAL COURSE: Date of Admission:08/16/18 Pt is a 58 y/o F w/ PMHx GERD p/w 1 day h/o sharp lower abdominal and lower back pain a/w NBNB vomiting, febrile to 101.5 on presentation with leukocytosis and tachycardia. UA was positive, UCx grew Strep agalactiae. CT a/p was negative for acute pathology, did show sutble UPJ obstruction with 3 month follow up recommended. Pt was treated with IV ABx and all signs and symptoms resolved. Discharged to complete PO ABx with outpatient follow up with primary care. Date of Discharge: 08/17/18 Minutes to complete discharge: 40 Discharge Summary Reason For Visit: URINARY TRACT INFECTION Current Active Problems UTI (urinary tract infection) (Acute) Condition: Stable - Instructions Diet, Activity, Other Instructions: You were hospitalized for abdominal pain and fevers, which turned out to be caused by a urinary tract infection. CT scan of your abdomen and pelvis was negative. You will require 1 further day of antibiotics; a prescription has been sent to your pharmacy for Keflex. Take 1 pill twice tomorrow, approximately 12 hours apart. Otherwise resume your home medications. Follow up with your PMD, Dr. Prado, within one week of discharge. If you have any new or worsening abdominal pain, back or flank pain, fever, chills, burning with urination, blood in your urine, or any other new or concerning symptoms, please return to the Emergency Department. Referrals: Aviva Prado MD [Non Staff, Medical] - Disposition: HOME - Home Medications Comprehensive Discharge Medication List: Ambulatory Orders Latanoprost 0.005% Eye Drops [Xalatan 0.005% Eye Drops -] 1 drop OU DAILY Diazepam [Valium] 5 mg PO Q6H #4 tablet MDD 4 08/07/18 Methocarbamol [Robaxin -] 1,000 mg PO TID #22 tablet 08/07/18 Cephalexin Monohydrate [Keflex -] 500 mg PO BID #2 capsule 08/17/18 This patient is new to me today: Yes Date on this admission: 08/17/18 Emergency Visit: No Critical Care patient: No - Discharge Referral Referred to [facility] No
[2018-08-17] MEDS ORDERED: HALOPERIDOL LACTATE 5 MG/ML IM ONE (13:53)
[2018-08-17 15:40] VITALS: TEMP 98.8
== END 2018-08-17 17:05 | disposition home or self-care (01) ==
LOC: JER 21:48 → JERBED 08-16 03:17 → J7W 08-16 14:47
PROVIDERS: ADMIT Internal Medicine; ATTEND Internal Medicine
PROC: 3E03329 Introduction of Other Anti-infective into Peripheral Vein, Percutaneous Approach (ICD-10-PCS; principal; 2018-08-16)
PROC: 3E0337Z Introduction of Electrolytic and Water Balance Substance into Peripheral Vein, Percutaneous Approach (ICD-10-PCS; 2018-08-16)
PROC: 3E033NZ Introduction of Analgesics, Hypnotics, Sedatives into Peripheral Vein, Percutaneous Approach (ICD-10-PCS; 2018-08-16)
DX: N39.0 Urinary tract infection, site not specified (principal); A41.9 Sepsis, unspecified organism; K21.9 Gastro-esophageal reflux disease without esophagitis; R01.1 Cardiac murmur, unspecified; R73.03 Prediabetes
CPT/HCPCS: 36415; 71045-TC-FY; 74177-TC; 80053; 81003; 82550; 83605; 83735; 84100; 84484; 85025; 87040; 87086; 87186; 87804; 93005; 93010; 99284-25; G0378; J0131; J7030

== ENCOUNTER 2018-08-22 09:52 | Emergency (ER) | payer OTHER ==
[2018-08-22 09:57] VITALS: BP 144/84; PULSE 88; TEMP 98.1; BMI 23.5
[2018-08-22] MEDS ORDERED: AMOX TR/POT CLAV 500MG/125MG TABLETS (FP) PO ONE (10:31)
--- NOTE | 2018-08-22 10:36 | PDOC ---
History of Present Illness - General Chief Complaint: Pain Stated Complaint: ABD PAIN Time Seen by Provider: 08/22/18 10:05 History Source: Patient - History of Present Illness Initial Comments: 08/22/18 10:36 Patient is a 58 y/o female with a history of GERD who presents for urinary frequency and pain in her groin. Patient was recently admitted to the hospital four days ago and found to have a UTI. She was sent home on antibiotics. She was feeling better by saturday but yesterday she had increased frequency and groin pain. Denies burning or hematuria. Denies any back pain, fevers, or chills. No other acute complaints. UCX: strep agalactae, with sensitivities Past History - Past Medical History Allergies/Adverse Reactions: Allergies Allergy/AdvReac Type Severity Reaction Status Date / Time No Known Allergies Allergy Verified 08/22/18 09:57 Home Medications: Ambulatory Orders Amoxicillin/Potassium Clav [Augmentin 500-125 Tablet] 1 each PO Q12H #9 tablet 08/22/18 Phenazopyridine HCl [Pyridium -] 100 mg PO BID #6 tablet 08/22/18 Cardiac Disorders: Yes (heart murmur) CVA: No COPD: No DVT: No Diabetes: Yes (borderline diabetes) GI Disorders: Yes (GERD) - Surgical History Orthopedic Surgery: Yes (right ankle) - Immunization History Immunization Up to Date: Yes - Suicide/Smoking/Psychosocial Hx Smoking Status: No Smoking History: Never smoked Have you smoked in the past 12 months: No Number of Cigarettes Smoked Daily: 0 If you are a former smoker, when did you quit?: 2005 Cigars Per Day: 0 Information on smoking cessation initiated: No Hx Alcohol Use: No Drug/Substance Use Hx: No Substance Use Type: None Hx Substance Use Treatment: No Review of Systems - Review of Systems Constitutional: No: Chills Respiratory: No: Cough, Shortness of Breath Cardiac (ROS): No: Chest Pain ABD/GI: No: Diarrhea, Nausea, Vomiting : Yes: Frequency, Pain. No: Burning, Dysuria Musculoskeletal: No: Back Pain *Physical Exam - Vital Signs Last Vital Signs Temp Pulse Resp BP Pulse Ox 98.1 F 88 17 144/84 100 08/22/18 09:53 08/22/18 09:53 08/22/18 09:53 08/22/18 09:53 08/22/18 09:53 - Physical Exam Comments: 08/22/18 10:42 GENERAL: A&O x3, no acute distress EYES: EOMI HEART: RRR, no murmurs, rubs, or gallops LUNGS: CTAL B/L ABD: soft, non tender, no distension MSK: no CV tenderness SKIN: no rashes or lesions noted Medical Decision Making - Medical Decision Making 08/22/18 10:43 Patient with UTI , cx positive for strep agalacte and sensitivies, sensitive to PCN last abd CT: minimal-mild dilitation of R Renal, subtle Ureteropelvic junction obstruction Will prescribe Augmentin and Pyridium for continued treatment of UTI vitals stable *DC/Admit/Observation/Transfer Diagnosis at time of Disposition: UTI (urinary tract infection) Qualifiers: Urinary tract infection type: acute cystitis Hematuria presence: without hematuria Qualified Code(s): N30.00 - Acute cystitis without hematuria - Discharge Dispostion Disposition: HOME Condition at time of disposition: Good - Prescriptions Prescriptions: Amoxicillin/Potassium Clav [Augmentin 500-125 Tablet] 1 each PO Q12H #9 tablet Phenazopyridine HCl [Pyridium -] 100 mg PO BID #6 tablet - Referrals Referrals: Aviva Prado MD [Primary Care Provider] - - Patient Instructions Printed Discharge Instructions: DI for Urinary Tract Infection (UTI) Additional Instructions: You came to the Emergency Department for increased urination and a pain in your groin. We ar going to give you five more days of antibiotic to complete treatment of your urinary tract infection. For the infection please take: 1 tab of Augmentin twice a day at 8 am and 8pm by mouth and with food for five days We gave you one dose while in the ED, so you will take the second dose tonight, and take two each day for the next four days. We have also prescribed you Pyridium to help with any urinary burning: Please take it twice a day by mouth as needed for the pain Please return to the Emergency Department if you have fevers, back pain, trouble urinating, vaginal discharge, dizziness, chest pain, or shortness of breath. - Post Discharge Activity
[2018-08-22] MEDS ORDERED: AMOX TR/POT CLAV 500MG/125MG TABLETS (FP) ONE (10:39)
--- NOTE | 2018-08-22 10:43 | PDOC ---
Attending Attestation - Resident Resident Name: Lela Pena - ED Attending Attestation I have performed the following: I have examined & evaluated the patient, The case was reviewed & discussed with the resident, I agree w/resident's findings & plan - HPI HPI: 08/22/18 10:39 58 y/o F w/ PMHx GERD p/w lower suprapubic dull ache and urinary frequency since yesterday. No n/v/d, no f/c. Previously with diarrhea when she took the abx and keflex but that has resolved. Previously admitted 08/15- for UTI and fever, s/p IV abx and 1 day of additional keflex when she was discharged. Urine culture Strep Agalactiae. - Physicial Exam PE: 08/22/18 10:39 NAD, well appearing, PERRL, EOMI, MMM, nl conjunctiva, anicteric; neck supple. lungs clear, RRR, abdomen soft nontender. YOUNG x4. No peripheral edema. normal color for ethnicity, WWP. - Medical Decision Making 08/22/18 10:41 hpi as documented VS wnl. reassuring. well appearing urine culture reviewed, +UTI that could be inadequately treated, with sensitivities reviewed for the Strep agalactiae. lowest anle <0.03 with pcn, so will rx augmentin x 5 day course. blood cultures and prior labs wnl. negative growth to date no systemic findings or sx, abdomen soft and benign, so doubt pathology Pt informed of my clinical impression, treatment recommendations and disposition plan. All questions answered to patient's satisfaction and expressed understanding and comfort with this. Reasons for returning to the ED sooner discussed with the patient otherwise, follow up with primary care physician. At the time of discharge, the patient is alert, clinically improved, tolerating po and verbalizes understanding of instructions. Patient does not suffer from an acute life-threatening medical condition at this time she is safe for outpatient follow-up. 08/22/18 10:42
== END 2018-08-22 10:51 | disposition home or self-care (01) ==
LOC: JER 09:52
DX: N30.00 Acute cystitis without hematuria (principal); K21.9 Gastro-esophageal reflux disease without esophagitis; R73.03 Prediabetes; R01.1 Cardiac murmur, unspecified; Z87.891 Personal history of nicotine dependence
CPT/HCPCS: 99282-25

== ENCOUNTER 2019-12-22 10:34 | Emergency (ER) | payer OTHER ==
[2019-12-22 10:40] VITALS: BMI 25.4
[2019-12-22] MEDS ORDERED: SODIUM CHLORIDE 1,000 ML IV STA (10:41)
[2019-12-22] MEDS ORDERED: MECLIZINE HCL 25 MG TABLET (FP) PO ONE (10:41)
--- NOTE | 2019-12-22 10:42 | PDOC ---
Rapid Medical Evaluation Chief Complaint: Lightheaded Time Seen by Provider: 12/22/19 10:39 Medical Evaluation: Allergies Allergy/AdvReac Type Severity Reaction Status Date / Time No Known Allergies Allergy Verified 08/22/18 09:57 12/22/19 10:39 Pt presents for an evaluation of lightheadedness and dizziness, and headache. She states that the room was spinning around her. Admits to associated nausea and L ear discomfort over the past 4 days. Has hx of vertigo Exam: No gross neuro deficits, NAD Orders: labs, IVF, EKG Pt to proceed to the ER for further evaluation Discharge Disposition - Diagnosis Vertigo - Discharge Dispostion Condition at time of disposition: Stable - Referrals - Patient Instructions - Post Discharge Activity
[2019-12-22] MEDS ORDERED: LACTATED RINGERS SOLUTION 1000 ML INFUS.BAG IV ONE (10:51)
[2019-12-22] MEDS ORDERED: MECLIZINE HCL 25 MG TABLET (FP) ONE (11:21)
[2019-12-22 11:42] LABS: BASO % 1.4 % (0-2.0); EOS % 1.4 % (0-4.5); HEMATOCRIT 38.4 % (32.4-45.2); HEMOGLOBIN 12.8 GM/dL (10.7-15.3); LYMPH % 37.7 % (8-40); MCH 30.2 pg (25.7-33.7); MCHC 33.5 g/dl (32.0-36.0); MEAN CELL VOLUME 90.3 fl (80-96); MEAN PLT VOLUME 7.9 fl (7.5-11.1); MONO % 8.4 % (3.8-10.2); NEUT % 51.1 % (42.8-82.8); PLATELET COUNT 297 K/MM3 (134-434); RBC 4.25 M/mm3 (3.60-5.2); RDW 13.7 % (11.6-15.6)
--- NOTE | 2019-12-22 11:45 | PDOC ---
History of Present Illness - General Chief Complaint: Lightheaded Stated Complaint: DIZZY Time Seen by Provider: 12/22/19 10:39 - History of Present Illness Initial Comments: 12/22/19 11:32 59 yo female with pmh of vertigo, GERD, and cervical disc herniation presents to ED for feeling of unbalance that starting this morning. Pt explains two days ago she had a wooshing sound in her left ear that went away last night after turning her head. Pt then this morning while getting ready for work had sudden feeling of feeling off balance and feeling that room was not spinning but "looking like a wave." Pt said she has had prior vertigo symptoms throughout the years but this was much worse so decided to come. Currently pt still has a feeling being off balance but does feel symptoms have improved. Pt denies any recent URI symptoms, chest pain, SOB, cough, weakness, or slurred voice. PMH: GERD, Vertigo, cervical disc herniation Meds: Estradiol, Rockten PSH: denies Allergies: seasonal Social: occasional alcohol use; denies current tobacco use smoked tobacco for 20 years 1/2 pack quit 11 years ago; denies drug use PCP: Dr. Johan Chicas Neuro: Dr. Yo Past History - Medical History Allergies/Adverse Reactions: Allergies Allergy/AdvReac Type Severity Reaction Status Date / Time No Known Allergies Allergy Verified 08/22/18 09:57 Home Medications: Ambulatory Orders Estradiol 1 drop HS 12/22/19 Meclizine HCl 25 mg PO TID 7 Days #20 tablet 12/22/19 Netarsudil Mesylat/Latanoprost [Rocklatan 0.02%-0.005% Eye Drp] 2.5 ml OP DAILY 12/22/19 Cardiac Disorders: Yes (heart murmur) CVA: No COPD: No DVT: No Diabetes: Yes (borderline diabetes) GI Disorders: Yes (GERD) Other medical history: VERTIGO - Surgical History Orthopedic Surgery: Yes (right ankle) - Immunization History Immunization Up to Date: No - Psycho-Social/Smoking History Smoking Status: No Smoking History: Never smoked Have you smoked in the past 12 months: No Number of Cigarettes Smoked Daily: 0 If you are a former smoker, when did you quit?: 2005 Cigars Per Day: 0 Information on smoking cessation initiated: No - Substance Abuse Hx (Audit-C & DAST Scrn) How often the patient has a drink containing alcohol: Never Score: In Men: 4 or > Positive; In Women: 3 or > Positive: 0 Screen Result (Pos requires Nsg. Audit-10AR): Negative In the last yr the pt used illegal drug/Rx for NonMed reason: No Score: Yes response is considered Positive: 0 Screen Result (Positive result requires Nsg. DAST-10): Negative Review of Systems - Review of Systems Comments:: GENERAL/CONSTITUTIONAL: No fever or chills. No weakness. HEAD, EYES, EARS, NOSE AND THROAT: No change in vision. No ear pain or discharge. No sore throat. Pt does have some swishing on left ear that has gone away. CARDIOVASCULAR: No chest pain or shortness of breath RESPIRATORY: No cough, wheezing, or hemoptysis. GASTROINTESTINAL: Nausea. No vomiting, diarrhea or constipation. GENITOURINARY: No dysuria, frequency, or change in urination. MUSCULOSKELETAL: No joint or muscle swelling or pain. No back pain. Chronic neck pain due to herniation. SKIN: No rash NEUROLOGIC: Headache and vertigo. No loss of consciousness, or change in strength/sensation. ENDOCRINE: No increased thirst. No abnormal weight change ALLERGIC/IMMUNOLOGIC: No hives or skin allergy. *Physical Exam - Vital Signs Last Vital Signs Temp Pulse Resp BP Pulse Ox 98.9 F 76 16 131/83 98 12/22/19 10:36 12/22/19 10:36 12/22/19 10:36 12/22/19 10:36 12/22/19 10:36 - Physical Exam 12/22/19 12:13 GENERAL: Awake, alert, and fully oriented, in moderate distress HEAD: No signs of trauma, normocephalic, atraumatic EYES: PERRLA, EOMI, sclera anicteric, conjunctiva clear ENT: Auricles normal inspection, hearing grossly normal, nares patent, orop harynx clear without exudates. Moist mucosa. Tympanic membrane intact. NECK: Normal ROM, supple, no lymphadenopathy, JVD, or masses LUNGS: No distress, speaks full sentences, clear to auscultation bilaterally HEART: Regular rate and rhythm, normal S1 and S2, no murmurs, rubs or gallops, peripheral pulses normal and equal bilaterally. ABDOMEN: Soft, nontender, normoactive bowel sounds. No guarding, no rebound. No masses EXTREMITIES : Normal inspection, Normal range of motion, no edema. No clubbing or cyanosis. NEUROLOGICAL: Cranial nerves II through XII grossly intact. Normal speech, no focal sensorimotor deficits. Rapid alternating movements intact. Finger to nose test intact. Heel to vera normal. Pt able to ambulate with moderate waddling gait. Pt has normal tandem gait. SKIN: Warm, Dry, normal turgor, no rashes or lesions noted ED Treatment Course - LABORATORY CBC & Chemistry Diagram: 12/22/19 11:15 12/22/19 11:15 Medical Decision Making - Medical Decision Making 12/22/19 12:25 59 yo female with pmh of vertigo, GERD, cervical heniation presents to ED for feeling off balance that started this morning. Pt has had prior sxs of left sided swishing sound for two days prior. Pt currently does have symptoms but does feel better. Will get basic labs and give meclizine for dizziness, tylenol for headache, and Regalon for nausea. Will assess to see if pt has vertigo after meds and decide on CT. 12/22/19 12:48 Pt currently states no dizziness but still has headache. Pt still has not received acetaminophen. 12/22/19 13:33 Pt currently feels much improved and wants to go home. Pt neuro exam was completely benign. Ambulation was greatly improved. Rapid alternating movement, Ankle to vera, and finger to nose is all normal. PT also able to do tandem walk which is normal as well. Ekg does show first degree AV block. Will discharge with neuro and pcp follow up within one week. 12/22/19 21:21 Pt UA came back negative which was voiced to pt that since not symptomatic even if positive would not treat, but if positive will call about test results. Pt test came back negative so no call will be made. Discharge - Discharge Information Problems reviewed: Yes Clinical Impression/Diagnosis: Vertigo Condition: Improved Disposition: HOME - Additional Discharge Information Prescriptions: Meclizine HCl 25 mg PO TID 7 Days #20 tablet - Follow up/Referral Referrals: ON STAFF,NOT [Primary Care Provider] - - Patient Discharge Instructions Patient Printed Discharge Instructions: Benign Paroxysmal Positional Vertigo Additional Instructions: You came to emergency room for dizziness. This is most likely Benign positional vertigo (peripheral vertigo). Please follow up with your PCP and neurologist within one week. I prescribed for you meclizine to your pharmacy. Please take 25mg every 8 hours for 7 days. If you have any of the following please return to ED: - worsening dizziness - unable to ambulate - unable to handle anything by mouth - chest pain or shortness of breath If you have any emerging symptoms please call for medical help right away. - Post Discharge Activity Work/Back to School Note: Back to Work, Parent(s) Back to Work Note
[2019-12-22] MEDS ORDERED: ACETAMINOPHEN 325 MG TABLET (FP) PO ONE (11:47)
[2019-12-22] MEDS ORDERED: METOCLOPRAMIDE HCL INJECTION 10 MG/2 ML VIAL IVPUSH ONE (11:49)
[2019-12-22] MEDS ORDERED: SODIUM CHLORIDE 0.9% 500 ML INFUS.BAG IV ONE (11:49)
[2019-12-22 12:09] LABS: ALBUMIN 3.6 g/dl (3.4-5.0); BILIRUBIN,TOTAL 0.4 mg/dL (0.2-1); BLOOD UREA NITROGEN 11.7 mg/dL (7-18); CALCIUM 9.3 mg/dL (8.5-10.1); CREATININE 0.8 mg/dL (0.55-1.3); POTASSIUM 4.5 mmol/L (3.5-5.1); TOT PROT 7.8 g/dl (6.4-8.2)
[2019-12-22] MEDS ORDERED: ACETAMINOPHEN 325 MG TABLET (FP) ONE (12:46)
[2019-12-22] MEDS ORDERED: METOCLOPRAMIDE HCL INJECTION 10 MG/2 ML VIAL ONE (12:47)
--- NOTE | 2019-12-22 13:25 | PDOC ---
Documentation entered by Nicolasa Davies SCRIBE, acting as scribe for Phong Mello MD. Phong Mello MD: This documentation has been prepared by the Samson garcia Ana, SCRIBE, under my direction and personally reviewed by me in its entirety. I confirm that the documentation accurately reflects all work, treatment, procedures, and medical decision making performed by me. Attending Attestation - Resident Resident Name: [facility] - ED Attending Attestation I have performed the following: I have examined & evaluated the patient, The case was reviewed & discussed with the resident, I agree w/resident's findings & plan, Exceptions are as noted - HPI HPI: 12/22/19 11:05 Patient is a 59 year old female with a significant past medical history of smoking (quit 11 years ago), vertigo, GERD, cervical radiculopathy, herniated disc, lower back pain, acid reflux and gastritis, who presents to the ED feeling unbalanced and lightheaded since this morning. Patient stated she was getting ready for work when the room suddenly "looked like a wave". Patient said she has experienced prior vertigo symptoms for the past few years but that today's symptoms were "way worse". Patient also endorsed a "wooshing sound" in her left ear x 2 days that ended last night. Patient said she still currently feels unbalanced but that her symptoms have slightly improved from earlier today. Patient denies: weakness, slurred voice, SOB, cough, chest pain, abdominal pain, any recent URI symptoms, or any other related symptoms. Allergies: NKDA Patient is a social drinker PCP: Dr. Johan Chicas Neuro: Dr. Yo - Physicial Exam PE: 12/22/19 11:06 Vitals: Triage Vital signs reviewed General Appearance: no acute distress, well nourished well developed, Head: Atraumatic, normocephalic Eyes: Pupils equal reactive round, extraocular movement intact Ears: TM's normal bilaterally; Neck: Supple;No Nuchal rigidity Chest Wall: Nontender Cardiac: Regular rate and rhythm, no murmurs, no rubs, no gallops, Lungs: Clear to auscultation bilateral, good air movement bilaterally, Abdomen: Soft, nondistended, normal bowel sounds, nontender to palpation Extremities: Full range of motion to all extremities, no cyanosis, clubbing, or edema Skin: Warm and dry, no rashes or lesions, no petechiae Neuro: AOX3; Cranial Nerves 2-12 grossly c intact, Strength intact to all extremities, Sensation intact to all extremities, gait normal Psych: normal mood, normal affect - Medical Decision Making 12/22/19 13:27 59 years old history of vertigo GERD smoking presents to the ED with 35 minutes of room spinning upon arrival to the ED received meclizine and fluids and now is asymptomatic able to ambulate comfortably with no recurrence of symptoms normal neurologic examination on repeat exam EKG performed at 1258 demonstrates normal sinus rhythm no ST elevations no T wave inversions Interpreted by me. History examination consistent with BPV discussed head CT with patient given no symptoms at this time will defer We will provide patient with neurology follow-up Patient return to ED for any severe worsening symptoms or for any concerns Discharge - Discharge Information Problems reviewed: Yes Clinical Impression/Diagnosis: Vertigo Condition: Improved Disposition: HOME - Additional Discharge Information Prescriptions: Meclizine HCl 25 mg PO TID 7 Days #20 tablet - Follow up/Referral Referrals: ON STAFF,NOT [Primary Care Provider] - - Patient Discharge Instructions Patient Printed Discharge Instructions: Benign Paroxysmal Positional Vertigo Additional Instructions: You came to emergency room for dizziness. This is most likely Benign positional vertigo (peripheral vertigo). Please follow up with your PCP and neurologist within one week. I prescribed for you meclizine to your pharmacy. Please take 25mg every 8 hours for 7 days. If you have any of the following please return to ED: - worsening dizziness - unable to ambulate - unable to handle anything by mouth - chest pain or shortness of breath If you have any emerging symptoms please call for medical help right away. - Post Discharge Activity Work/Back to School Note: Back to Work, Parent(s) Back to Work Note
[2019-12-22 14:35] LABS: PH,URINE 7.5 (5.0-8.0); URINE APPEARANCE CLEAR; URINE BILIRUBIN NEGATIVE (NEGATIVE); URINE COLOR YELLOW; URINE GLUCOSE (UA) NEGATIVE (NEGATIVE); URINE KETONE NEGATIVE (NEGATIVE); URINE LEUK ESTERASE NEGATIVE (NEGATIVE); URINE NITRITE NEGATIVE (NEGATIVE); URINE PROTEIN NEGATIVE (NEGATIVE); URINE UROBILINOGEN 0.2 mg/dL (0.2-1.0)
[2019-12-22 14:39] VITALS: BP 122/76; PULSE 68; TEMP 98.2
--- NOTE | 2019-12-23 09:22 | EKG ---
Test Reason : Blood Pressure : / mmHG Vent. Rate : 071 BPM Atrial Rate : 071 BPM P-R Int : 212 ms QRS Dur : 074 ms QT Int : 408 ms P-R-T Axes : 052 -08 022 degrees QTc Int : 443 ms SINUS RHYTHM WITH 1ST DEGREE A-V BLOCK MINIMAL VOLTAGE CRITERIA FOR LVH, MAY BE NORMAL VARIANT SEPTAL INFARCT , AGE UNDETERMINED ABNORMAL ECG WHEN COMPARED WITH ECG OF 16-AUG-2018 00:11, VENT. RATE HAS DECREASED BY 49 BPM SEPTAL INFARCT IS NOW PRESENT NONSPECIFIC T WAVE ABNORMALITY NO LONGER EVIDENT IN LATERAL LEADS Confirmed by MD DOMINGUEZ, INES ([id number]) on 12/23/2019 9:21:51 AM Referred By: Confirmed By:INES MIX MD
== END 2019-12-22 14:35 | disposition home or self-care (01) ==
LOC: JER 10:34 → SUPCPDRO 10:34 → JER 14:35
PROC: 3E033NZ Introduction of Analgesics, Hypnotics, Sedatives into Peripheral Vein, Percutaneous Approach (ICD-10-PCS; principal; 2019-12-22)
DX: R42 Dizziness and giddiness (principal)
CPT/HCPCS: 36415; 80053; 81003; 85025; 93005; 93010; 99285-25

== ENCOUNTER 2020-08-07 13:16 | Emergency (ER) | payer OTHER ==
[2020-08-07 13:23] VITALS: TEMP 98.2; BMI 25.7
[2020-08-07 15:06] LABS: EOS % 0.8 % (0-4.5); HEMATOCRIT 37.7 % (32.4-45.2); HEMOGLOBIN 12.9 GM/dL (10.7-15.3); LYMPH % 29.9 % (8-40); MCH 30.6 pg (25.7-33.7); MCHC 34.2 g/dl (32.0-36.0); MEAN CELL VOLUME 89.6 fl (80-96); MEAN PLT VOLUME 8.3 fl (7.5-11.1); MONO % 7.2 % (3.8-10.2); NEUT % 61.1 % (42.8-82.8); PLATELET COUNT 286 K/MM3 (134-434); RBC 4.21 M/mm3 (3.60-5.2); RDW 13.5 % (11.6-15.6); WHITE BLOOD COUNT 5.6 K/mm3 (4.0-10.0)
[2020-08-07 15:07] LABS: URINE APPEARANCE CLOUDY; URINE BILIRUBIN NEGATIVE (NEGATIVE); URINE COLOR DK YELLOW; URINE GLUCOSE (UA) NEGATIVE (NEGATIVE); URINE KETONE TRACE (NEGATIVE); URINE LEUK ESTERASE NEGATIVE (NEGATIVE); URINE NITRITE NEGATIVE (NEGATIVE); URINE PROTEIN NEGATIVE (NEGATIVE); URINE UROBILINOGEN 0.2 mg/dL (0.2-1.0)
[2020-08-07 15:11] LABS: EPI CELLS >36 /uL (0-25.1); HYALINE CASTS 4 /uL (0-3.1); URINE BACTERIA 1653 /uL (0-1359); URINE RBC 9 /uL (0-23.9); URINE WBC 44 /uL (0-25.8)
[2020-08-07 15:29] LABS: CHLORIDE 102 mmol/L (98-107); SODIUM 126 mmol/L (136-145)
[2020-08-07 15:32] LABS: ALBUMIN 3.3 g/dl (3.4-5.0); BLOOD UREA NITROGEN 13.9 mg/dL (7-18); CO2 29 mmol/L (21-32); GLUCOSE,RANDOM 73 mg/dL (74-106)
[2020-08-07 15:33] LABS: MAGNESIUM 2.6 mg/dL (1.8-2.4)
[2020-08-07 15:35] LABS: CREATININE 0.8 mg/dL (0.55-1.3)
[2020-08-07 15:37] LABS: TOT PROT 9.6 g/dl (6.4-8.2)
[2020-08-07 15:38] LABS: ALK PHOS 92 U/L (45-117)
[2020-08-07 15:42] LABS: ANION GAP -5 MMOL/L (8-16)
[2020-08-07 15:49] LABS: POTASSIUM > 10.0 mmol/L (3.5-5.1)
[2020-08-07 16:25] LABS: POTASSIUM 4.2 mmol/L (3.5-5.1)
[2020-08-07 16:27] LABS: CALCIUM 9.5 mg/dL (8.5-10.1)
[2020-08-07 16:28] LABS: ALBUMIN 3.5 g/dl (3.4-5.0); BLOOD UREA NITROGEN 12.9 mg/dL (7-18); MAGNESIUM 2.2 mg/dL (1.8-2.4)
[2020-08-07 16:31] LABS: CREATININE 0.8 mg/dL (0.55-1.3)
[2020-08-07 16:32] LABS: BILIRUBIN,TOTAL 0.3 mg/dL (0.2-1)
[2020-08-07 16:38] LABS: TOT PROT 7.4 g/dl (6.4-8.2)
[2020-08-07] MEDS ORDERED: LIDOCAINE 5% TOPICAL PATCH TP ONE (16:45)
[2020-08-07] MEDS ORDERED: LIDOCAINE 5% TOPICAL PATCH ONE (17:04)
[2020-08-07 17:21] VITALS: BP 155/88; PULSE 85
[2020-08-07] MEDS ORDERED: LIDOCAINE PATCH REMOVAL MC SCH (22:00)
== END 2020-08-07 17:28 | disposition home or self-care (01) ==
LOC: JER 13:16
DX: R07.89 Other chest pain (principal); R07.1 Chest pain on breathing; I31.3 Pericardial effusion (noninflammatory)
CPT/HCPCS: 36415; 71046-TC-FY; 71275-TC; 80053; 81003; 82550; 82553; 83735; 84484; 85025; 85379; 87086; 93005; 93010; 99284-25; Q9967

== ENCOUNTER 2021-09-21 04:28 | Day surgery (SDC) | payer OTHER ==
[2021-09-18 12:05] VITALS: BMI 22.3
[2021-09-21 09:11] VITALS: TEMP 98
[2021-09-21 09:56] VITALS: BP 103/76; PULSE 81
== END 2021-09-21 10:20 | disposition home or self-care (01) ==
LOC: JASU-ENDO 04:28
PROVIDERS: ATTEND Internal Medicine Gastroenterology
PROC: 0DJD8ZZ Inspection of Lower Intestinal Tract, Via Natural or Artificial Opening Endoscopic (ICD-10-PCS; principal; 2021-09-21 08:30)
DX: Z12.11 Encounter for screening for malignant neoplasm of colon (principal); K57.30 Diverticulosis of large intestine without perforation or abscess without bleeding; K64.8 Other hemorrhoids; Z86.010 Personal history of colon polyps

== ENCOUNTER 2021-10-03 06:44 | Emergency (ER) | payer OTHER ==
[2021-10-03 06:52] VITALS: TEMP 97.3; BMI 25.7
[2021-10-03] MEDS ORDERED: ONDANSETRON 4 MG/2 ML VIAL IVPUSH ONE (07:25)
[2021-10-03] MEDS ORDERED: SODIUM CHLORIDE 0.9% 500 ML INFUS.BAG IV ONE (07:25)
[2021-10-03] MEDS ORDERED: ONDANSETRON 4 MG/2 ML VIAL ONE (07:57)
[2021-10-03 08:07] LABS: BASO % 0.7 % (0-2.0); EOS % 1.1 % (0-4.5); HEMATOCRIT 36.7 % (32.4-45.2); HEMOGLOBIN 12.6 GM/dL (10.7-15.3); LYMPH % 33.4 % (8-40); MCH 30.2 pg (25.7-33.7); MCHC 34.3 g/dl (32.0-36.0); MEAN CELL VOLUME 88.1 fl (80-96); MEAN PLT VOLUME 7.3 fl (7.5-11.1); MONO % 8.7 % (3.8-10.2); NEUT % 56.1 % (42.8-82.8); PLATELET COUNT 276 10^3/uL (134-434); RBC 4.17 M/mm3 (3.60-5.2); RDW 13.6 % (11.6-15.6); WHITE BLOOD COUNT 3.3 K/mm3 (4.0-10.0)
[2021-10-03 08:22] LABS: ALBUMIN 3.4 g/dl (3.4-5.0); BLOOD UREA NITROGEN 16.1 mg/dL (7-18)
[2021-10-03 08:25] LABS: CREATININE 0.7 mg/dL (0.55-1.3)
[2021-10-03 08:27] LABS: BILIRUBIN,TOTAL 0.3 mg/dL (0.2-1); TOT PROT 7.4 g/dl (6.4-8.2)
[2021-10-03 10:52] VITALS: BP 125/84; PULSE 60
== END 2021-10-03 10:58 | disposition home or self-care (01) ==
LOC: JER 06:44
PROC: 3E033GC Introduction of Other Therapeutic Substance into Peripheral Vein, Percutaneous Approach (ICD-10-PCS; principal; 2021-10-03)
DX: U07.1 COVID-19 (principal); E86.0 Dehydration
CPT/HCPCS: 36415; 80053; 85025; 93005; 93010; 96374; 99284-25

== ENCOUNTER 2021-10-19 04:28 | Day surgery (SDC) | payer OTHER ==
[2021-10-16 13:45] VITALS: BMI 22.3
[2021-10-19 13:08] VITALS: TEMP 97.7
[2021-10-19 13:50] VITALS: BP 152/84; PULSE 78
== END 2021-10-19 14:26 | disposition home or self-care (01) ==
LOC: JASU-ENDO 04:28
PROVIDERS: ATTEND Internal Medicine Gastroenterology
PROC: 0DB78ZX Excision of Stomach, Pylorus, Via Natural or Artificial Opening Endoscopic, Diagnostic (ICD-10-PCS; 2021-10-19)
PROC: 0DB68ZX Excision of Stomach, Via Natural or Artificial Opening Endoscopic, Diagnostic (ICD-10-PCS; 2021-10-19)
PROC: 0DB48ZX Excision of Esophagogastric Junction, Via Natural or Artificial Opening Endoscopic, Diagnostic (ICD-10-PCS; principal; 2021-10-19 11:00)
DX: K21.00 Gastro-esophageal reflux disease with esophagitis, without bleeding (principal); K22.2 Esophageal obstruction; K44.9 Diaphragmatic hernia without obstruction or gangrene; K29.50 Unspecified chronic gastritis without bleeding
CPT/HCPCS: 88305-TC; 88342-TC

== ENCOUNTER 2021-10-28 18:48 | Emergency (ER) | payer OTHER ==
[2021-10-28 18:59] VITALS: BP 138/85; PULSE 85; TEMP 97.9; BMI 23.5
[2021-10-28] MEDS ORDERED: MAG HYDROX/AL HYDROX/SIMETH -MYLANTA- ORAL SUSPENSION PO ONE (20:04)
[2021-10-28] MEDS ORDERED: FAMOTIDINE 20 MG/50 ML IVPB 20 MG/50 ML MG IVPB ONE ×2 (20:04→20:32)
[2021-10-28] MEDS ORDERED: MAG HYDROX/AL HYDROX/SIMETH 30 ML UNIT-DOSE CUP ONE (20:32)
[2021-10-28] MEDS ORDERED: ACETAMINOPHEN 1000 MG/100 ML BAG IVPB ONE (21:06)
[2021-10-28] MEDS ORDERED: ACETAMINOPHEN INJECTION 100 ML IVPB ONE (22:10)
[2021-10-28 22:22] LABS: BASO % 0.9 % (0-2.0); EOS % 1.7 % (0-4.5); HEMOGLOBIN 12.3 GM/dL (10.7-15.3); LYMPH % 41.5 % (8-40); MCH 30.1 pg (25.7-33.7); MCHC 34.1 g/dl (32.0-36.0); MEAN CELL VOLUME 88.2 fl (80-96); MEAN PLT VOLUME 8.7 fl (7.5-11.1); MONO % 7.6 % (3.8-10.2); NEUT % 48.3 % (42.8-82.8); PLATELET COUNT 280 10^3/uL (134-434); RBC 4.09 M/mm3 (3.60-5.2); RDW 13.8 % (11.6-15.6); WHITE BLOOD COUNT 5.4 K/mm3 (4.0-10.0)
[2021-10-28 22:41] LABS: ALBUMIN 3.8 g/dl (3.4-5.0); BLOOD UREA NITROGEN 13.8 mg/dL (7-18); CALCIUM 9.7 mg/dL (8.5-10.1)
[2021-10-28 22:45] LABS: CREATININE 0.7 mg/dL (0.55-1.3)
[2021-10-28 22:46] LABS: BILIRUBIN,TOTAL 0.4 mg/dL (0.2-1); TOT PROT 8.3 g/dl (6.4-8.2)
== END 2021-10-29 01:06 | disposition home or self-care (01) ==
LOC: JER 18:48
PROC: 3E0333Z Introduction of Anti-inflammatory into Peripheral Vein, Percutaneous Approach (ICD-10-PCS; principal; 2021-10-28)
PROC: 3E033GC Introduction of Other Therapeutic Substance into Peripheral Vein, Percutaneous Approach (ICD-10-PCS; 2021-10-28)
DX: R07.9 Chest pain, unspecified (principal)
CPT/HCPCS: 36415; 71046-TC-FY; 80053; 83690; 84484; 85025; 93005; 93010; 99285-25

== ENCOUNTER 2023-05-18 20:01 | Observation (INO) | payer OTHER ==
[2023-05-18] MEDS ORDERED: SODIUM CHLORIDE 1,000 ML IV SCH (20:15)
[2023-05-18] MEDS ORDERED: METOCLOPRAMIDE HCL INJECTION 10 MG/2 ML VIAL IVPUSH ONE (20:50)
[2023-05-18] MEDS ORDERED: ACETAMINOPHEN 1000 MG/100 ML BAG IVPB ONE (20:50)
[2023-05-18 20:58] LABS: BASO % 1.1 % (0-2.0); EOS % 2.2 % (0-4.5); HEMATOCRIT 36.5 % (32.4-45.2); HEMOGLOBIN 12.1 GM/dL (10.7-15.3); LYMPH % 40.8 % (8-40); MCH 29.6 pg (25.7-33.7); MCHC 33.2 g/dl (32.0-36.0); MEAN CELL VOLUME 89.1 fl (80-96); MEAN PLT VOLUME 7.5 fl (7.5-11.1); MONO % 11.5 % (3.8-10.2); NEUT % 44.4 % (42.8-82.8); PLATELET COUNT 324 10^3/uL (134-434); RDW 13.7 % (11.6-15.6); WHITE BLOOD COUNT 4.5 K/mm3 (4.0-10.0)
[2023-05-18 21:06] LABS: INR 1.02 (0.83-1.09); PROTHROMBIN TIME (PATIENT) 11.8 SEC (9.7-13.0)
[2023-05-18 21:08] LABS: ACTIVATED PTT 29.3 SECONDS (25.2-36.5)
[2023-05-18 21:15] LABS: POTASSIUM 4.2 mmol/L (3.5-5.1)
[2023-05-18 21:18] LABS: ALBUMIN 3.2 g/dl (3.4-5.0)
[2023-05-18 21:19] LABS: BLOOD UREA NITROGEN 19.1 mg/dL (7-18)
[2023-05-18 21:21] LABS: CREATININE 0.9 mg/dL (0.55-1.3)
[2023-05-18 21:22] LABS: TOT PROT 7.2 g/dl (6.4-8.2)
[2023-05-18 21:24] LABS: BILIRUBIN,TOTAL 0.2 mg/dL (0.2-1)
[2023-05-18] MEDS ORDERED: ACETAMINOPHEN INJECTION 100 ML IVPB ONE (21:51)
[2023-05-18] MEDS ORDERED: METOCLOPRAMIDE HCL INJECTION 10 MG/2 ML VIAL ONE (21:52)
[2023-05-18] MEDS ORDERED: METOCLOPRAMIDE HCL INJECTION 10 MG/2 ML VIAL IVPUSH PRN (23:14)
[2023-05-18] MEDS ORDERED: MELATONIN 5 MG TABLETS PO ONE (23:14)
[2023-05-18] MEDS ORDERED: ACETAMINOPHEN 325 MG TABLET (FP) PO PRN ×2 (23:37→23:38)
[2023-05-18] MEDS ORDERED: MELATONIN 5 MG TABLETS ONE (23:54)
[2023-05-19] MEDS ORDERED: ASPIRIN 325 MG ENTERIC COATED TABLET (FP) PO ONE (01:34)
[2023-05-19] MEDS ORDERED: ONDANSETRON 4 MG/2 ML VIAL IVPUSH PRN (02:28)
[2023-05-19] MEDS ORDERED: ASPIRIN 325 MG ENTERIC COATED TABLET (FP) ONE (04:38)
[2023-05-19 05:43] LABS: EOS % 1.9 % (0-4.5); HEMATOCRIT 33.1 % (32.4-45.2); HEMOGLOBIN 11.2 GM/dL (10.7-15.3); LYMPH % 40.9 % (8-40); MCH 30.2 pg (25.7-33.7); MCHC 33.9 g/dl (32.0-36.0); MONO % 8.1 % (3.8-10.2); NEUT % 48.1 % (42.8-82.8); PLATELET COUNT 274 10^3/uL (134-434); RBC 3.72 M/mm3 (3.60-5.2); RDW 13.5 % (11.6-15.6)
[2023-05-19 06:03] LABS: POTASSIUM 3.8 mmol/L (3.5-5.1)
[2023-05-19 06:05] LABS: ALBUMIN 2.9 g/dl (3.4-5.0); CALCIUM 8.9 mg/dL (8.5-10.1)
[2023-05-19 06:06] LABS: BLOOD UREA NITROGEN 15.4 mg/dL (7-18); MAGNESIUM 1.8 mg/dL (1.8-2.4)
[2023-05-19 06:08] LABS: CREATININE 0.7 mg/dL (0.55-1.3)
[2023-05-19 06:09] LABS: PHOSPHOROUS 4.2 mg/dL (2.5-4.9)
[2023-05-19 06:10] LABS: TOT PROT 6.6 g/dl (6.4-8.2)
[2023-05-19 06:51] LABS: BILIRUBIN,TOTAL 0.4 mg/dL (0.2-1)
[2023-05-19] MEDS ORDERED: FAMOTIDINE 40 MG TABLET PO PRN (07:01)
[2023-05-19] MEDS ORDERED: ACETAMINOPHEN 325 MG TABLET (FP) PO PRN (07:37)
[2023-05-19] MEDS ORDERED: FAMOTIDINE 20 MG TABLET PO PRN (07:38)
[2023-05-19] MEDS ORDERED: ASPIRIN 81 MG CHEWABLE TABLETS ONE (09:25)
[2023-05-19] MEDS ORDERED: LOSARTAN POTASSIUM 50 MG TABLET ONE (09:25)
[2023-05-19] MEDS ORDERED: ENOXAPARIN NA (PORCINE) 40 MG/0.4 ML DISP.SYRIN SQ ONE (09:26)
[2023-05-19] MEDS ORDERED: ASPIRIN 81 MG CHEWABLE TABLETS PO SCH (10:00)
[2023-05-19] MEDS ORDERED: LOSARTAN POTASSIUM 50 MG TABLET PO SCH (10:00)
[2023-05-19] MEDS ORDERED: ENOXAPARIN NA (PORCINE) 40 MG/0.4 ML DISP.SYRIN SQ SCH (10:00)
[2023-05-19] MEDS ORDERED: PATIENT'S OWN MEDICATION (NON-FORMULARY) (Netarsudil Mesylat/Latanoprost [Rocklatan 0.02%- OU SCH (10:00)
[2023-05-19 10:11] VITALS: RESP 18
[2023-05-19 10:52] LABS: URINE APPEARANCE CLEAR; URINE BILIRUBIN NEGATIVE (NEGATIVE); URINE COLOR YELLOW; URINE GLUCOSE (UA) NEGATIVE (NEGATIVE); URINE KETONE NEGATIVE (NEGATIVE); URINE LEUK ESTERASE NEGATIVE (NEGATIVE); URINE NITRITE NEGATIVE (NEGATIVE); URINE PROTEIN NEGATIVE (NEGATIVE); URINE UROBILINOGEN 0.2 mg/dL (0.2-1.0)
[2023-05-19] MEDS ORDERED: traMADol HCL 50 MG TABLET PO PRN (12:37)
[2023-05-19 16:37] VITALS: BP 95/62; PULSE 85; TEMP 98.2
[2023-05-19] MEDS ORDERED: LATANOPROST 0.005% OPHTH SOLN 2.5ML BOTTLE OU SCH (22:00)
== END 2023-05-19 17:03 | disposition home or self-care (01) ==
LOC: JER 20:01 → JERBED 21:46
PROVIDERS: ADMIT Internal Medicine; ATTEND Internal Medicine
PROC: 3E033NZ Introduction of Analgesics, Hypnotics, Sedatives into Peripheral Vein, Percutaneous Approach (ICD-10-PCS; principal; 2023-05-18)
PROC: 3E023GC Introduction of Other Therapeutic Substance into Muscle, Percutaneous Approach (ICD-10-PCS; 2023-05-18)
PROC: 3E033NZ Introduction of Analgesics, Hypnotics, Sedatives into Peripheral Vein, Percutaneous Approach (ICD-10-PCS; 2023-05-18)
PROC: 3E033GC Introduction of Other Therapeutic Substance into Peripheral Vein, Percutaneous Approach (ICD-10-PCS; 2023-05-18)
PROC: 3E0337Z Introduction of Electrolytic and Water Balance Substance into Peripheral Vein, Percutaneous Approach (ICD-10-PCS; 2023-05-18)
DX: G43.109 Migraine with aura, not intractable, without status migrainosus (principal); R73.03 Prediabetes; K21.9 Gastro-esophageal reflux disease without esophagitis; R20.2 Paresthesia of skin; R53.1 Weakness; Z87.891 Personal history of nicotine dependence; R11.0 Nausea
CPT/HCPCS: 0241U-QW; 36415; 70450-TC; 70551-TC; 80053; 80061; 81003; 82550; 82553; 82962; 83036; 83735; 84100; 84484; 85025; 85610; 85730; 86850; 86900; 86901; 93005; 93010; 96361; 96372; 96374; 96375; 99285-25; G0378